=== PATIENT | female | born 1965 | race Caucasian/White ===

== ENCOUNTER 2020-06-08 12:47 | Emergency (ER) | payer OTHER, BC ==
[2020-06-08 13:15] VITALS: BP 140/107; PULSE 86; O2SAT 97
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
== END 2020-06-08 13:50 | disposition home or self-care (01) ==
LOC: ED 12:47
DX: S39.012A Strain of muscle, fascia and tendon of lower back, initial encounter (principal); V43.53XS Car driver injured in collision with pick-up truck in traffic accident, sequela; E06.3 Autoimmune thyroiditis; R55 Syncope and collapse; M54.9 Dorsalgia, unspecified; M50.90 Cervical disc disorder, unspecified, unspecified cervical region; K59.00 Constipation, unspecified
CPT/HCPCS: 99283